=== PATIENT | female | born 1945 | race Caucasian/White ===

== ENCOUNTER 2018-08-27 06:23 | Inpatient (IN) ==
[~2018-08-27 06:23] MED LIST: Bacitracin 50,000 UNIT, Polymyxin B Sulfate 500,000 UNIT, Sodium Chloride IRRigation 1,... IR ONE
[2018-08-27] MEDS ORDERED: Albuterol 2.5 MG/3 ML NEBULIZER IH ONE (06:48)
[2018-08-27] MEDS ORDERED: Clindamycin 900 MG/50 ML 900 MG/50 ML IV.SOLN IVPB ONE (06:48)
[2018-08-27] MEDS ORDERED: Ringers Solution, Lactated 1,000 ML IVC SCH ×2 (07:00→12:21)
[2018-08-27] MEDS ORDERED: Albumin Human 5% 25.0 GM/500 ML VIAL ONE (07:14)
[2018-08-27] MEDS ORDERED: Dexmedetomidine HCl 400 MCG/100 ML MLS IVC ONE (07:14)
[2018-08-27] MEDS ORDERED: *HR* Remifentanil 1 MG VIAL IVP ONE (07:19)
--- NOTE | 2018-08-27 07:20 | Anesthesia Evaluation PreOp ---
Date of Encounter: 08/27/18 Time of Encounter: 07:18 - Past History Planned Operation: Anterior Cervical Fusion C4-C7 Cardiac History: HTN, Hyperlipidemia Pulmonary History: Smoker (60 years), Snore SENIOR BIOINFORMATICS SCIENTIST History: Denies Any Significant HX Other Medical History: Renal (CKD stage 3), Diabetes Type II (diet controlled), Other (anxiety/depression) Anesthesia History: No Prior Anesthetic Complications, Past Anesthesia Alcohol Use: none Drug use: none Medications and Allergies Amlodipine Besylate 2.5 mg PO DAILY 06/12/18 [History] Atorvastatin [Lipitor] 40 mg PO HS 06/12/18 [History] Cholecalciferol (D-3) [Vitamin D] 1,000 unit PO DAILY 06/12/18 [History] Citalopram [CeleXA] 20 mg PO DAILY 06/12/18 [History] OxyCODONE Immed Rel [Roxicodone 5 MG] 5 mg PO Q4HR PRN 5 Days #20 tablet [Rx] Ubidecarenone [Co Q-10] 100 mg PO DAILY 06/12/18 [History] Vit C/E/Zn/Coppr/Lutein/Zeaxan [Preservision Areds 2 Softgel] 1 cap PO DAILY [History] Vitamin E Acid Succinate [Vitamin E] 400 units PO DAILY 06/12/18 [History] 3 Allergy/AdvReac Type Severity Reaction Status Date / Time meloxicam Allergy See Verified 08/27/18 07:36 Comments naproxen [From Aleve] Allergy Difficulty Verified 08/27/18 07:36 Breathing Penicillins Allergy Hives Verified 08/27/18 07:36 Iodinated Contrast- Oral and AdvReac See Verified 08/27/18 07:36 IV Dye Comments [Iodinated Contrast Media - Oral and] morphine AdvReac See Verified 08/27/18 07:36 Comments NSAIDS (Non-Steroidal AdvReac See Verified 08/27/18 07:36 Anti-Inflamma Comments sulfamethoxazole AdvReac See Verified 08/27/18 07:36 [From Bactrim] Comments trimethoprim [From Bactrim] AdvReac See Verified 08/27/18 07:36 Comments - Meds/Allergy Pre-op Review Medications Reviewed: Yes Allergies Reviewed: Yes Beta Blockers on Current Med List: No Anesthesia Results - Labs Laboratory Tests 08/22/18 08/22/18 08/22/18 09:30 09:30 09:30 WBC 8.2 Hgb 14.3 Hct 43.9 Plt Count 168 PT 11.3 INR 1.0 APTT 34.6 Sodium 141 Potassium 4.0 BUN 16 Creatinine 1.14 - Imaging EKG: report reviewed (06/11/[address] & T-WAVE ABNORMALITY ) Anesthesia Exam O2 Sat Height 1.65 m Height 1.65 m Height 1.65 m Weight 58.06 kg Weight 58.06 kg Weight 58.06 kg O2 Sat by Pulse Oximetry 95 O2 Sat by Pulse Oximetry 95 Vital Signs Temp Pulse Resp BP Pulse Ox 98.7 F 79 18 178/76 95 08/27/18 06:49 08/27/18 06:49 08/27/18 06:49 08/27/18 06:49 08/27/18 06:49 Height: 5'5'' Weight: 128 lbs NPO (# of Hours): 8 Pain Scale: 0 Pain Scale Used: Numeric (1 - 10) - HEENT Pupil (Motor): EOMI Mallampati: II Teeth: Missing Denture Type: Upper: Partial, Lower: Partial Oral Opening: Greater than 3 - SENIOR BIOINFORMATICS SCIENTIST LOC: Oriented SENIOR BIOINFORMATICS SCIENTIST Motor: Normal RUE, Normal LUE, Normal RLE, Normal LLE, Normal Face SENIOR BIOINFORMATICS SCIENTIST Sensory: Normal: RUE, LUE, RLE, LLE, Face - Cardiac Rhythm: Regular Murmur: None - Pulmonary Breath Sounds: bilateral Clear Respiratory Effort: Symmetrical Anesthesia Assess/Plan ASA Score: 3 Modified [place] Scale for Level of Consciousness: Cooperative, oriented, and tranquil Anesthetic Plan: General Monitoring Plan: Standard Monitors Recovery Plan: PACU
--- NOTE | 2018-08-27 07:37 | History & Physical Report ---
Date of Encounter: 08/27/18 Time of Encounter: 07:36 24 Hour HP Update - Instructions Instructions: If the History and Physical is less than 30 days old and was completed prior to A.M. admission and or procedure and has NOT been updated on calendar day of procedure please complete this update prior to performing procedure. - Update Patient reports changes in Medical Condition: No Changes in examination, assessment, or condition: No Changes in Medication: No Preop tests/diagnostics Reviewed: Yes Pre-Op MRSA Screen: Negative Surgery Remains Indicated: Yes Consent for Planned Operative Procedure(s) Verified: Yes - Pre-Operative Checklist Preoperative Checklist Indicated: No Prophylactic Antibiotic Ordered: Yes Home Medications Include Beta Elder: No Beta Elder Taken Today (Day of Surgery): No Beta Elder Taken Yesterday (Day Prior to Surgery): No Is VTE Prophylaxis Indicated?: Yes
[2018-08-27] MEDS ORDERED: Lidocaine -MPF 2% 2 ML VIAL ONE (07:47)
[2018-08-27] MEDS ORDERED: *HR* Propofol 200 MG/20 ML VIAL IVP ONE ×2 (07:47→10:17)
[2018-08-27] MEDS ORDERED: *HR* FentaNYL (PF) 100 MCG/2 ML VIAL ONE ×2 (07:47→08:05)
[2018-08-27] MEDS ORDERED: *HR* Succinylcholine 200 MG/10 ML VIAL IVP ONE (07:47)
[2018-08-27] MEDS ORDERED: *HR* Rocuronium Bromide 50 MG/5 ML VIAL ONE (07:51)
[2018-08-27] MEDS ORDERED: Lacri-Lube 3.5 GM TUBE ONE (07:59)
[2018-08-27] MEDS ORDERED: Dexamethasone 4 MG/ML VIAL ONE (08:09)
[2018-08-27] MEDS ORDERED: Propofol 500 MG/50 ML INFUS..BTL ONE (09:00)
[2018-08-27] MEDS ORDERED: *HR* Phenylephrine 10 MG/ML VIAL ONE (09:06)
[2018-08-27] MEDS ORDERED: *HR* Labetalol 20 MG/4 ML SYRINGE IVP PRN (09:21)
[2018-08-27] MEDS ORDERED: Ondansetron 4 MG/2 ML VIAL IVP ONE (09:21)
[2018-08-27] MEDS ORDERED: *HR* HYDROmorphone (PF) 1 MG/ML SYRINGE IVP PRN (09:21)
[2018-08-27] MEDS ORDERED: *HR* Promethazine 25 MG/ML VIAL IVP PRN (09:21)
[2018-08-27] MEDS ORDERED: Ondansetron 4 MG/2 ML VIAL ONE (09:45)
--- NOTE | 2018-08-27 11:21 | Orthopedic Operative Note ---
Date of procedure: 08/27/18 Post-op diagnosis: same Operation/Findings: Corpectomy C5, anterior cervical fusion C4-C7: The patient was brought to the operating room and placed supine on the operating room table. Successful general endotracheal anesthesia intubation was performed. Neurophysiologic monitoring personnel placed leads on the upper and lower extremities as well as the cranium for EMG monitoring purposes. Appropriate baseline potentials were noted by the neurophysiologic monitoring staff. Canela catheter was placed prior to positioning. Compression boots and stockings were placed for deep vein thrombosis prophylaxis. Padding was also placed all bony prominences including the ulnar nerve near the medial epicondyles of the elbows were appropriately padded. Mild traction was placed on the bilateral shoulders and taped into place. Preoperative antibiotics were administered. The area from the mandible bilaterally to the upper thoraces was prepped and draped in the usual sterile fashion. An oblique incision was made at the level of the cricoid cartilage which is approximately 3 cm in length and extended from the midline of the cervical spine laterally towards the sternocleidomastoid muscle on the left. It was 1 cm medial and parallel to the sternocleidomastoid mastoid muscle on the left. We then performed standard medial approach to the carotid sheath. Sponges were used to tease the fascial medial to the sternocleidomastoid muscle while carefully controlling and palpating the carotid artery. Using careful dissection we were able to get to the level of the anterior vertebral bodies and longus coli muscles. The spinal needle was placed at the appropriate C6-7 level, and intraoperative radiograph was obtained which was a cervical spine lateral radiograph. The needle and radiograph confirmed we were at the correct C6-7 operative level. We further exposed this level by using Bovie cautery under the medial edge of the longus colli muscles to allow them to be retracted approximately 2 mm laterally on each side. An 11 blade was used to perform anterior discectomy at the appropriate C6-7 level after an initial annulotomy of the anterior longitudinal ligament and annulus was performed. Further disc material was removed with pituitary Rongeurs. Subsequently, Synthes pins were placed at the C6 and C7 vertebral bodies respectively to provide distraction. We then used a Trimline cervical retractor which was placed in both medial and lateral as well as inferior superior direction to allow full visualization of the appropriate C6-7 disc and C6 and C7 vertebral bodies. The Leica microscope was brought to the field and the remainder of the procedure was performed under the guidance of this microscope. Using pituitary rongeurs and small curettes, various micro- instruments, a full discectomy was performed at the appropriate C6-C7 level. The posterior longitudinal ligament was encountered and appeared partially calcified. A portion of this ligament was removed. After complete and thorough discectomy and removal of spondylitic material was performed the endplates of the C6 and C7 vertebral bodies were prepared with a bur until allow bleeding of cancellous bone. A 8mm trial graft was evaluated and appeared to fit quite well within the excised C6-7 disc space. A cortico- cancellous allograft of 8 mm was utilized, carefully tapped into place within the excised disc space with the aid of a bone tamp. It was seated approximately 2 mm from the anterior edge of the cortex of the adjacent vertebral bodies. We then turned our attention to the C5-6 level where a similar series of procedures was performed including discectomy, removal of spondylitic material, end plate preparation. We then turned our attention to the C4-5 level where again a discectomy was performed, removal of spondylitic material was done. Partial removal of the posterior longitudinal ligament was performed. This left decompressed levels at C4-5 and C5-6. We then removed intervening C5 vertebral body with rongeurs and various Kerrison instruments and save this autograft bone. We decompressed posterior to the C5 vertebral body after removal all the way to the posterior to longitudinal ligament. We measured the intervening space from the inferior portion of C4 to the superior portion of C6. We then selected the appropriate size expandable cage to fill the space from C4-C6 after corpectomy. We packed the anterior corpectomy cage with autograft bone, and then carefully placed this expandable cage under direct visualization and using fluorography. When found to be in appropriate position the inseam trimmer was removed. A cervical plate was then placed on the anterior aspect of the C4, C5, C6, and C7 vertebral bodies. The plate was placed in the midline position after drilling six 13 mm self tapping screws and inserting them. They were locked in place using standard Venture plate maneuvers. At this point a lateral radiograph of the cervical spine was obtained and showed satisfactory position of the graft at C6-7, corpectomy cage spanning C4-C6, and anterior cervical plate spanning C4-C7. We packed the open spaces of the construct with autograft bone. The wound was copiously irrigated and bleeders encountered were cauterized using Bovie cautery. Platysma was closed with interrupted 2-0 Vicryl sutures. Running 3-0 Monocryl suture was used for skin closure. Sterile dressing was placed over the neck wound. A cervical collar was placed. The patient was transferred to a hospital bed and extubated. The patient was noted to be fully motor and sensory intact in the recovery room at the end of the procedure. The medications. All sponge instrument and needle counts were correct at the end of the procedure. Anesthesia: GETA Surgeon: Phil Martins Jr Was there an social science research assistant present: No Estimated blood loss (cc): 60 Specimen: None Condition: stable Disposition: PACU
--- NOTE | 2018-08-27 12:12 | Anesthesia Evaluation Post Op ---
Date of Encounter: 08/27/18 Time of Encounter: 12:11 - Vital Signs Vital Signs: Vital Signs/O2 Sat, Most Current Temp Pulse Resp BP Pulse Ox 97.3 F L 74 16 116/51 99 08/27/18 12:04 08/27/18 12:04 08/27/18 12:04 08/27/18 12:04 08/27/18 12:04 - Lungs Lungs: Clear Ascult./Percussion - Airway Airway: Non-obstructed - Cardiovascular Regular Rate - Mental Status Mental Status: Asleep with brisk response to light stimulation - Pain Pain Scale: 0 Pain Scale used: Numeric (1 - 10) - Nausea Vomiting Nausea Vomiting: Not Present - Hydration Hydration: NPO, Has not voided - Discharge PostOp Status: Transfer Patient to floor
[2018-08-27] MEDS ORDERED: Acetaminophen 325 MG TABLET PO PRN (12:21)
[2018-08-27] MEDS ORDERED: Ondansetron 4 MG/2 ML VIAL IVP PRN (12:21)
[2018-08-27] MEDS ORDERED: Naloxone 0.4 MG/ML INJ IVP PRN (12:21)
[2018-08-27] MEDS ORDERED: *HR* OxyCODONE Immed Rel 5 MG TABLET PO PRN (12:21)
[2018-08-27] MEDS ORDERED: *HR* HYDROcodone/Acet 5/325 mg TABLET PO PRN (12:21)
[2018-08-27] MEDS ORDERED: D5% in Water 1,000 ML IVC PRN (18:36)
[2018-08-27] MEDS ORDERED: *HR* Dextrose 50 % in Water (Syg) 50 ML SYRINGE IVP PRN (18:36)
[2018-08-27] MEDS ORDERED: Dextrose Gel 15 GM/37.5 ML TUBE PO PRN ×2 (18:36)
[2018-08-27] MEDS ORDERED: Clindamycin 600 MG in D5% in Water 50 ML IVPB SCH (18:38)
[2018-08-27] MEDS: Clindamycin 600 MG/50 ML 600 MG/50 ML IV.SOLN IVPB SCH (20:01)
[2018-08-27] MEDS ORDERED: Insulin LISPRO 300 UNITS/3 ML VIAL SQ SCH (21:00)
[2018-08-28] MEDS: Clindamycin 600 MG/50 ML 600 MG/50 ML IV.SOLN IVPB SCH (03:04)
[2018-08-28] MEDS: Insulin LISPRO 300 UNITS/3 ML VIAL SQ SCH ×2 (08:02→12:42)
[2018-08-28] MEDS ORDERED: (Ubidecarenone [Co Q-10] 100 MG) PO SCH (09:00)
[2018-08-28] MEDS ORDERED: (Vit C/E/Zn/Coppr/Lutein/Zeaxan [Preservision Areds 2) PO SCH (09:00)
[2018-08-28] MEDS ORDERED: amLODIPine 5 MG TABLET PO SCH (09:00)
[2018-08-28] MEDS ORDERED: Cholecalciferol (D-3) 1,000 UNIT TABLET PO SCH (09:00)
[2018-08-28 11:07] VITALS: BP 172/73
--- NOTE | 2018-08-28 13:49 | Discharge Summary ---
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 Brown is a 72 year old female The patient had an uneventful postoperative course. Progressed from intravenous analgesic needs to oral analgesic needs only. 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 All intraoperative and/or postoperative radiographic studies were satisfactory. Patient is discharged with plan for rehabilitation and follow-up in 2 weeks post discharge on analgesic medication and patient's home medications. - Time Spent with Patient Total time spent providing and/or coordinating discharge services: - Discharge Medications Prescriptions: OxyCODONE Immed Rel [Roxicodone 5 MG] 5 mg PO Q6HR PRN 7 Days #30 tablet PRN Reason: Severe Pain Home Medications: Amlodipine Besylate 2.5 mg PO DAILY 06/12/18 [History] Atorvastatin [Lipitor] 40 mg PO HS 06/12/18 [History] Cholecalciferol (D-3) [Vitamin D] 1,000 unit PO DAILY 06/12/18 [History] Citalopram [CeleXA] 20 mg PO DAILY 06/12/18 [History] Ubidecarenone [Co Q-10] 100 mg PO DAILY 06/12/18 [History] Vit C/E/Zn/Coppr/Lutein/Zeaxan [Preservision Areds 2 Softgel] 1 cap PO DAILY [History] Vitamin E Acid Succinate [Vitamin E] 400 units PO DAILY 06/12/18 [History] OxyCODONE Immed Rel [Roxicodone 5 MG] 5 mg PO Q6HR PRN 7 Days #30 tablet [Rx] Allergies/Adverse Reactions: 3 Allergy/AdvReac Type Severity Reaction Status Date / Time meloxicam Allergy See Verified 08/27/18 07:36 Comments naproxen [From Aleve] Allergy Difficulty Verified 08/27/18 07:36 Breathing Penicillins Allergy Hives Verified 08/27/18 07:36 Iodinated Contrast- Oral and AdvReac See Verified 08/27/18 07:36 IV Dye Comments [Iodinated Contrast Media - Oral and] morphine AdvReac See Verified 08/27/18 07:36 Comments NSAIDS (Non-Steroidal AdvReac See Verified 08/27/18 07:36 Anti-Inflamma Comments sulfamethoxazole AdvReac See Verified 08/27/18 07:36 [From Bactrim] Comments trimethoprim [From Bactrim] AdvReac See Verified 08/27/18 07:36 Comments Date of admission: 08/27/18 12:23 Primary care physician: Hayley London CNP Consults: 08/27/18 12:21 Consult to Physical Therapy [CONS] Routine Comment: Evaluate, develop and implement POC Reason for Consult: Postoperative rehabilitation Does patient have active BEDREST order?: No Is patient medically & hemodynamically stable?: Yes Patient assessed for mobility or mobilized this visit?: No Consult to Spine Navigator [CONS] [CONS] Routine Labs on day of discharge: Labs from last 24 hours 08/27/18 08/27/18 08/27/18 20:20 14:58 06:47 POC Glucose 172 H 147 H 122 H - Impressions ITS Impressions Fluoroscopy 08/27/18 00:00 IMPRESSION: Fluoroscopy was utilized for the purposes of surgical planning. D/ / 08/27/2018 09:03:57 Jaron Avitia MD / [facility] Interpreting Provider: Jaron Avitia MD Cervical Spine X-Ray 08/28/18 08:22 IMPRESSION: Uncomplicated anterior fusion from C4 through C7 with C5 corpectomy Stable mild anterolisthesis at C3-4 D/ / 08/28/2018 08:35:41 Jaron Avitia MD / [facility] Interpreting Provider: Jaron Avitia MD - Patient Status Disposition: Home, Self-Care Condition: Good Functional capacity at discharge: independent ambulation Overall status at discharge: patient is progressing back to baseline - Discharge Instructions Follow Up With: Mckenna Negro, JUSTIN [Physician Molder Hand] - 09/10/18 9:30 am Hayley London, AUTO RADIATOR SPECIALIST [Primary Care Provider] - Additional Instructions: Discharge Instructions: Cervical Please call [facility] ([phone]), your Primary Care Physician, or report to the ER if you have any of the following symptoms: Fever greater that 101.5, increased pain/redness/drainage/odor for your incision site or any other concerning symptoms. ACTIVITY * May Shower * No Tub Baths * No Smoking * No Swimming * No Driving * Wear Collar when up walking * Incentive Spirometer 10 times an hour MEDICATIONS: Upon discharge resume your home medications. Take all the medications as prescribed. Take a stool softener if taking narcotic pain medications. Stool softeners are only effective if you drink enough fluids. Drink 6-8 glass of water or fluids a day, unless this is not allowed for another health problem. Despite using stool softeners, if you haven't had a bowel movement in 3 days, please switch to a gentle laxative. Gentle laxatives are sold over the counter. You should have a bowel movement within 24 hours, if not call the office. You will be discharged from the hospital with a prescription for pain medication. You are encouraged to decrease the use of narcotic pain medication as tolerated. Should you require a refill, please call the office. It is best to call 48-72 hours in advance of needing a prescription refill so you don't run out of medication. WOUND CARE: Leave steri-strips in place until they fall off on their own. Pat dry when you get out of the shower. FOLLOW-UP: Please follow up with your surgeon in the orthopedic clinic in 2 weeks from the day of surgery. References: [employer] ([email or web address]) - Diet and Activity Activity: as per physical therapy Diet: advance to your usual diet
== END 2018-08-28 14:15 | disposition home or self-care (01) | DRG 473 ==
LOC: SAMDAY 06:23 → 3NENU 12:23
PROVIDERS: ADMIT Orthopaedic Surgery Orthopaedic Surgery of the Spine; ATTEND Orthopaedic Surgery Orthopaedic Surgery of the Spine
PROC: SPICORP (2018-08-27 07:45)